=== PATIENT | male | born 1970 | race Asian ===

== ENCOUNTER 2023-09-04 21:05 | Inpatient (IN) | payer MEDICARE ==
[~2023-09-04 21:05] MED LIST: Iopamidol-370 76% 500 ML MDV (1 ML CHARGE) ONE
[2023-09-04 22:19] LABS: #Basophils 0.05 10x3/uL (0.0-0.2); %Basophils 0.4 % (0.0-1.0); %Eosinophils 0.9 % (0.0-10.0); %Lymphocytes 17.4 % (21.0-51.0); %Monocytes 10.3 % (0.0-10.0); %Neutrophils 69.9 % (42.0-75.0); Hematocrit 43.2 % (42.0-52.0); Hemoglobin 14.8 g/dL (14.0-18.0); Mean Corpuscular HGB CONC 34.3 g/dL (32.0-36.0); Mean Corpuscular Hemoglobin 31.4 pg (27.0-31.0); Mean Corpuscular Volume 91.7 fL (78.0-98.0); Mean Platelet Volume 9.1 fL (7.4-10.4); Platelet Count 296 10x3/uL (130-400); Red Blood Cell (RBC) Count 4.71 mill/uL (4.70-6.10)
[2023-09-04 22:32] LABS: PTT 35.1 sec (22.9-36.1); Prothrombin Time 13.6 sec (12.0-14.7)
[2023-09-04 22:35] LABS: ALT (SGPT) 9 U/L (8-55); AST (SGOT) 21 U/L (5-34); Albumin 2.9 g/dL (3.5-5.0); Alkaline Phosphatase 64 U/L (40-110); Anion Gap 18 mmol/L (10-20); BUN (Urea Nitrogen) 19 mg/dL (8.4-25.7); Bilirubin, Total 1.3 mg/dL (0.2-1.2); Calc. Creatinine Clearance 0 mL/min (70-130); Calcium 8.5 mg/dL (7.8-10.44); Carbon Dioxide 23 mmol/L (22-29); Chloride 101 mmol/L (98-107); Estimated GFR 105; Globulin 4.2 g/dL (2.4-3.5); Glucose 103 mg/dL (70-105); Magnesium 2.2 mg/dL (1.6-2.6); Potassium 3.8 mmol/L (3.5-5.1); Protein, Total 7.1 g/dL (6.0-8.3); Sodium 138 mmol/L (136-145)
[2023-09-04 22:40] LABS: Troponin I Less than 0.010 ng/mL (< 0.028)
[2023-09-05] MEDS ORDERED: Labetalol HCl 100 MG/20 ML VIAL SLOW IVP PRN (00:32)
[2023-09-05] MEDS ORDERED: hydrALAZINE 20 MG/ML VIAL SLOW IVP PRN (00:34)
[2023-09-05] MEDS ORDERED: Ondansetron PF 4 MG/2 ML Vial IVP PRN (00:35)
[2023-09-05] MEDS ORDERED: Dextrose 5% in Water 1,000 ML IV PRN (00:35)
[2023-09-05] MEDS ORDERED: Promethazine HCl 25 MG/ML VIAL IM PRN (00:35)
[2023-09-05] MEDS ORDERED: Glucagon 1 MG/ML KIT IM PRN (00:35)
[2023-09-05] MEDS ORDERED: TETANUS, DIPHTHERIA TOX,ADULT (TDVAX) 0.5 ML VIAL IM ONE (00:35)
[2023-09-05] MEDS ORDERED: Dextrose 50% Abboject 50 ML SYRINGE SLOW IVP PRN (00:35)
[2023-09-05] MEDS ORDERED: Morphine 2 MG/ML VIAL SLOW IVP PRN (00:35)
[2023-09-05] MEDS ORDERED: Acetaminophen 650 MG Suppository PR PRN (00:36)
[2023-09-05 01:47] VITALS: BMI 25.9
[2023-09-05] MEDS: Lactated Ringer's 1,000 ML IV SCH (02:30)
[2023-09-05] MEDS: levETIRAcetam 500 MG (5 mL) VIAL SLOW IVP SCH ×2 (02:30→09:26)
[2023-09-05 04:28] LABS: #Basophils 0.04 10x3/uL (0.0-0.2); %Basophils 0.4 % (0.0-1.0); %Eosinophils 1.1 % (0.0-10.0); %Lymphocytes 18.2 % (21.0-51.0); %Monocytes 10.2 % (0.0-10.0); %Neutrophils 69.3 % (42.0-75.0); Hemoglobin 14.8 g/dL (14.0-18.0); Mean Corpuscular HGB CONC 35.2 g/dL (32.0-36.0); Mean Corpuscular Hemoglobin 32.1 pg (27.0-31.0); Mean Corpuscular Volume 91.1 fL (78.0-98.0); Platelet Count 300 10x3/uL (130-400); Red Blood Cell (RBC) Count 4.61 mill/uL (4.70-6.10)
[2023-09-05 04:53] LABS: Anion Gap 16 mmol/L (10-20); BUN (Urea Nitrogen) 16 mg/dL (8.4-25.7); Calc. Creatinine Clearance 110 mL/min (70-130); Calcium 8.5 mg/dL (7.8-10.44); Carbon Dioxide 22 mmol/L (22-29); Chloride 100 mmol/L (98-107); Estimated GFR 109; Glucose 107 mg/dL (70-105); Magnesium 2.1 mg/dL (1.6-2.6); Potassium 3.3 mmol/L (3.5-5.1); Sodium 135 mmol/L (136-145)
[2023-09-05] MEDS: Famotidine/PF 20 mg/2ml Vial SLOW IVP SCH (09:26)
[2023-09-05] MEDS ORDERED: Potassium Chloride 40 MEQ in Premix 1 BAG IVPB SCH (20:15)
[2023-09-05] MEDS: Potassium Chloride 20 MEQ in Premix 1 BAG IVPB SCH (20:58)
[2023-09-06 04:40] LABS: Anion Gap 15 mmol/L (10-20); BUN (Urea Nitrogen) 14 mg/dL (8.4-25.7); Calc. Creatinine Clearance 107 mL/min (70-130); Calcium 8.5 mg/dL (7.8-10.44); Carbon Dioxide 22 mmol/L (22-29); Chloride 103 mmol/L (98-107); Estimated GFR 108; Glucose 91 mg/dL (70-105); Phosphorus 3.2 mg/dL (2.3-4.7); Potassium 3.9 mmol/L (3.5-5.1); Sodium 136 mmol/L (136-145)
[2023-09-08] MEDS: Lactulose 20 GM (30 mL) UDCUP PO SCH (21:38)
[2023-09-08] MEDS: Senokot S 8.6-50 MG TAB PO SCH (21:38)
[2023-09-09 08:32] LABS: #Basophils 0.03 10x3/uL (0.0-0.2); %Basophils 0.3 % (0.0-1.0); %Eosinophils 0.8 % (0.0-10.0); %Lymphocytes 16.1 % (21.0-51.0); %Monocytes 7.8 % (0.0-10.0); %Neutrophils 74.2 % (42.0-75.0); Hematocrit 47.5 % (42.0-52.0); Hemoglobin 16.2 g/dL (14.0-18.0); Mean Corpuscular HGB CONC 34.1 g/dL (32.0-36.0); Mean Corpuscular Hemoglobin 31.3 pg (27.0-31.0); Mean Corpuscular Volume 91.7 fL (78.0-98.0); Mean Platelet Volume 8.7 fL (7.4-10.4); Platelet Count 377 10x3/uL (130-400); RBC Distribution Width 11.8 % (11.5-14.5); Red Blood Cell (RBC) Count 5.18 mill/uL (4.70-6.10)
[2023-09-09] MEDS: Polyethylene Glycol 3350 17 GM Packet PO SCH (08:33)
[2023-09-09 10:34] LABS: Anion Gap 15 mmol/L (10-20); BUN (Urea Nitrogen) 13 mg/dL (8.4-25.7); Calc. Creatinine Clearance 107 mL/min (70-130); Calcium 9.2 mg/dL (7.8-10.44); Carbon Dioxide 26 mmol/L (22-29); Chloride 101 mmol/L (98-107); Estimated GFR 107; Glucose 113 mg/dL (70-105); Potassium 3.7 mmol/L (3.5-5.1); Sodium 138 mmol/L (136-145)
[2023-09-11 10:24] VITALS: BMI 26.2
[2023-09-13 07:55] VITALS: TEMP 97.6
[2023-09-13 12:11] VITALS: BP 125/90
== END 2023-09-13 14:36 | DRG 87 ==
LOC: ERS 21:05 → CCU 23:34 → SURG B 09-06 16:34 → SJJU 09-07 15:00
PROVIDERS: ADMIT Surgery; ATTEND Surgery
DX: S06.5X0A Traumatic subdural hemorrhage without loss of consciousness, initial encounter (principal); W18.30XA Fall on same level, unspecified, initial encounter; Z98.890 Other specified postprocedural states; M25.551 Pain in right hip; M79.672 Pain in left foot; I10 Essential (primary) hypertension; Z79.899 Other long term (current) drug therapy; S00.11XA Contusion of right eyelid and periocular area, initial encounter
CPT/HCPCS: 36415; 36416; 70450; 70496; 70498; 70544; 70553; 71045; 74230; 80048; 80053; 83735; 83880; 84100; 84443; 84484; 85025; 85610; 85730; 93005; J1953; J3480; J7120; Q9967; S0028